=== PATIENT | male | born 1950 | race African-American/Black ===

== ENCOUNTER 2016-10-23 03:08 | Emergency (ER) | payer MEDICARE ==
[~2016-10-23] VITALS: Ht 190.5 cm; Wt 117.0 kg
[~2016-10-23 03:08] MED LIST: ACAR50TA3 PO; ASPI-496 PO; CARV12.52 PO; CLOP75TA PO; EZET1TAB35 PO; GLYB5TAB3 PO; LEVO50CA2 PO; LIOT5TAB3 PO; LOSA50TA6 PO; METF-162 PO; MULT-297 PO; NITR0.4T28 PO; OMEG1CAP6 PO; OMEP20CA9 PO; PIOG30TA23 PO; VITAMIN C PO
[2016-10-23 04:00] LABS: ASPARTATE AMINO TRANSFERASE 53 U/L (15-37); BLOOD UREA NITROGEN 25 mg/dL (7-18)
[2016-10-23 04:03] LABS: HEMATOCRIT 38.3 % (39.2-51.8); HEMOGLOBIN 12.6 g/dL (13.7-18.0); WHITE BLOOD COUNT 3.7 x10^3/uL (3.4-10)
[2016-10-23 04:05] LABS: IS PT STATUS REG ER OR PRE ER? YES
[2016-10-23 04:35] VITALS: BP 143/73
== END 2016-10-23 05:08 | disposition home or self-care (01) ==
LOC: MERGE 03:43 → ED 03:43
DX: R20.2 Paresthesia of skin (principal); I10 Essential (primary) hypertension; E11.9 Type 2 diabetes mellitus without complications; I25.2 Old myocardial infarction; Z90.49 Acquired absence of other specified parts of digestive tract; Z95.818 Presence of other cardiac implants and grafts; Z88.0 Allergy status to penicillin; Z88.1 Allergy status to other antibiotic agents
CPT/HCPCS: 36415; 71010; 80053; 83880; 84484; 85025; 93005; 99285

== ENCOUNTER 2019-02-06 16:37 | Emergency (ER) | payer MEDICARE ==
[~2019-02-06] VITALS: Ht 190.5 cm; Wt 112.3 kg
[~2019-02-06 16:37] MED LIST changes: +LIOT5TAB11 PO; -LIOT5TAB3 PO; +LOSA50TA14 PO; -LOSA50TA6 PO
--- NOTE | 2019-02-06 17:56 | NUR ---
X-RAY - US DELAY
[2019-02-06 18:27] LABS: ALANINE AMINOTRANSFERASE 33 U/L (12-78); ALBUMIN 3.7 g/dL (3.4-5.0); ANION GAP 5 mmol/L (5-15); CALCIUM 8.8 mg/dL (8.5-10.1); CHLORIDE 108 mmol/L (98-107); CREATININE 1.04 mg/dL (0.7-1.3)
[2019-02-06 18:32] LABS: ALKALINE PHOSPHATASE 89 U/L (45-117); BILIRUBIN,TOTAL 0.7 mg/dL (0.2-1.0); TOTAL PROTEIN 6.7 g/dL (6.4-8.2); TROPONIN I < 0.015 ng/mL (0.000-0.045)
[2019-02-06 18:37] LABS: BASOPHILS # (AUTO) 0.01 x10^3/uL (0-0.1); BASOPHILS % (AUTO) 0 % (0-1); EOSINOPHILS # (AUTO) 0.04 x10^3/uL (0-0.4); EOSINOPHILS % (AUTO) 1 % (1-7); LYMPHOCYTES # (AUTO) 1.33 x10^3/uL (1-3.4); LYMPHOCYTES % (AUTO) 34 % (22-44); MD SCAN; MEAN CORPUSCULAR HEMOGLOBIN 34.2 pg (27.5-34.5); MEAN CORPUSCULAR HGB CONC 32.6 g/dL (33.2-36.2); MEAN CORPUSCULAR VOLUME 104.9 fL (81-97); MEAN PLATELET VOLUME 7.6 fL (7.4-10.4); MONOCYTES # (AUTO) 0.33 x10^3/uL (0.2-0.8); MONOCYTES % (AUTO) 9 % (2-9); NEUTROPHILS # (AUTO) 2.23 x10^3/uL (1.8-6.8); NEUTROPHILS % (AUTO) 57 % (42-75); PLATELET COUNT 269 x10^3/uL (130-400); RED BLOOD COUNT 3.83 x10^6/uL (4.38-5.82); RED CELL DISTRIBUTION WIDTH 13.8 % (9.4-14.8)
--- NOTE | 2019-02-06 19:13 | NUR ---
ALL RESULTS ARE BACK AT THIS TIME. CHART UP FOR RECHECK.
[2019-02-06 20:09] VITALS: BP 146/74
--- NOTE | 2019-02-06 20:09 | NUR ---
NEW ORDERS RECEIVED. PT RESTING COMFORTABLY ON WINNIE. DEMETRIO. LAB AT BEDSIDE.
[2019-02-06 20:31] LABS: TROPONIN I < 0.015 ng/mL (0.000-0.045)
--- NOTE | 2019-02-06 20:39 | NUR ---
ALL RESULTS ARE BACK AT THIS TIME. CHART UP FOR RECHECK.
== END 2019-02-06 21:31 | disposition home or self-care (01) ==
LOC: ED 18:50
DX: R07.89 Other chest pain (principal); R20.2 Paresthesia of skin; E11.9 Type 2 diabetes mellitus without complications; I11.9 Hypertensive heart disease without heart failure; Z90.89 Acquired absence of other organs; Z98.61 Coronary angioplasty status
CPT/HCPCS: 36415; 71045; 80053; 83880; 84484; 85025; 85379; 93005; 93970; 99284